=== PATIENT | male | born 1985 ===

== ENCOUNTER 2018-07-05 17:26 | Emergency (ER) | payer OTHER ==
[2018-07-05 17:39] VITALS: BP 139/50; PULSE 81; RESP 18; TEMP 98.8; O2SAT 96
[2018-07-05] MEDS ORDERED: Lidocaine 1% w Epi 1:100,000 Inj INJ ONE (18:06)
[2018-07-05] MEDS ORDERED: Bacitracin 500 Units/gm Oint Foilpak UD TOP ONE (18:06)
[2018-07-05] MEDS ORDERED: Amoxicillin-Clav 875-125 mg Tab PO STA (18:06)
[2018-07-05] MEDS ORDERED: Tdap Vaccine 0.5 ml Vial (10-64 yrs) IM ONE ×2 (18:06→18:14)
[2018-07-05] MEDS ORDERED: Bacitracin 500 Units/gm Oint Foilpak UD ONE (18:13)
[2018-07-05] MEDS ORDERED: Amoxicillin-Clav 875-125 mg Tab PO ONE (18:13)
--- NOTE | 2018-07-05 18:19 | C.PDOC ---
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 Patient states that he was bit by his dog which has owned for the past 7 years. Patient reports that he was playing with his dog when he bit him. He notes that his dog does not have history of aggression. Denies having fever, changes in sensation, or weakness. Of note, patient is not UTD with tetanus vaccination. Time Seen by Provider: 07/05/18 17:53 Chief Complaint (Nursing): Bite History Per: Patient History/Exam Limitations: no limitations Onset/Duration Of Symptoms: Hrs Current Symptoms Are (Timing): Still Present Past Medical History Reviewed: Historical Data, Nursing Documentation, Vital Signs Vital Signs: Last Vital Signs Temp 98.8 F 07/05/18 17:33 Pulse 81 07/05/18 17:33 Resp 18 07/05/18 17:33 BP 139/50 L 07/05/18 17:33 Pulse Ox 96 07/05/18 17:33 - Medical History PMH: Asthma Surgical History: No Surg Hx Family History: States: No Known Family Hx - Social History Hx Alcohol Use: No Hx Substance Use: No Review Of Systems Except As Marked, All Systems Reviewed And Found Negative. Constitutional: Negative for: Fever, Chills Skin: Positive for: Other (dog bite to right forearm) Physical Exam - Physical Exam Appears: Non-toxic, No Acute Distress Skin: Warm, Dry, Other (2 puncture wounds dorsal aspect of right forearm, 1.5 cm laceration to anterior aspect of right forearm) Head: Atraumatic, Normacephalic Eye(s): bilateral: Normal Inspection, EOMI Nose: Normal Oral Mucosa: Moist Neck: Normal ROM, Supple Chest: Symmetrical Respiratory: No Accessory Muscle Use Extremity: Normal ROM, Capillary Refill (<2 sec), No Swelling Extremity: Bilateral: Normal Color And Temperature, Normal ROM Pulses: Left Radial: Normal, Right Radial: Normal Neurological/Psych: Oriented x3, Normal Speech, Normal Motor, Normal Sensation ED Course And Treatment O2 Sat by Pulse Oximetry: 96 (RA) Pulse Ox Interpretation: Normal Progress Note: PT declined XR. Laceration was irrigated thoroughly and 2 sutures were applied. I discussed risks and benefits of closing dog bite. Patient agreed to closure of dog bite. I discussed signs of concern with patient. Patient has been discharged and instructed to follow up for wound check in 2 days and suture removal in 7-10 days. Laceration - Laceration Repair Right Forearm Wound Length (In cm): 1.5 cm Description Of Wound: Irregular Wound Cleansed With: Betadine, Sterile Saline Anesthesia: Lidocaine 1%, With Epi Wound Examination: Irrigated With Saline, No FB With Wound Exploration, No Tendon Injury With Wound Exploration Wound Closure: Suture (2) Suture Technique And Material Used: Nylon (4-0) Wound Complexity: Simple Disposition - Disposition Disposition: HOME/ ROUTINE Disposition Time: 18:17 Condition: STABLE Additional Instructions: Wound check in 2 days. Suture removal in 7-10 days. Watch for signs of infection including redness, swelling or discharge. 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 - Scribe Statement The provider has reviewed the documentation as recorded by the Ducibe Jim Holden Provider Attestation All medical record entries made by the Ducibe were at my direction and personally dictated by me. I have reviewed the chart and agree that the record accurately reflects my personal performance of the history, physical exam, medical decision making, and the department course for this patient. I have also personally directed, reviewed, and agree with the discharge instructions and disposition.
== END 2018-07-05 18:34 | disposition home or self-care (01) ==
LOC: C.ER 17:26
DX: S51.851A Open bite of right forearm, initial encounter (principal); W54.0XXA Bitten by dog, initial encounter; Y92.9 Unspecified place or not applicable; Z23 Encounter for immunization